=== PATIENT | male | born 1970 | race Caucasian/White ===

== ENCOUNTER 2023-11-09 17:53 | Emergency (ER) | payer OTHER ==
[2023-11-09] MEDS: Acetaminophen 500 MG Tab PO ONE (19:01)
== END 2023-11-09 19:00 ==
LOC: FB.ED 17:53
DX: S06.320A Contusion and laceration of left cerebrum without loss of consciousness, initial encounter (principal); W22.8XXA Striking against or struck by other objects, initial encounter; Z59.00 Homelessness unspecified
CPT/HCPCS: 99283; A9270-GY